=== PATIENT | female | born 1970 | race Caucasian/White ===

== ENCOUNTER 2020-04-13 13:57 | Emergency (ER) | payer MEDICAID, SELFPAY ==
[~2020-04-13] VITALS: Ht 162.6 cm; Wt 63.5 kg
[2020-04-13 13:59] VITALS: Ht 162.6 cm; Wt 63.5 kg
[2020-04-13 16:12] VITALS: BP 142/79
== END 2020-04-13 16:12 | disposition home or self-care (01) ==
LOC: ED 13:57
DX: R53.1 Weakness (principal); M79.10 Myalgia, unspecified site; Z20.828 Contact with and (suspected) exposure to other viral communicable diseases
CPT/HCPCS: U0003

== ENCOUNTER 2020-04-17 23:55 | Emergency (ER) | payer MEDICAID, SELFPAY ==
[~2020-04-17] VITALS: Ht 167.6 cm; Wt 86.2 kg
[2020-04-17 23:58] VITALS: Ht 167.6 cm; Wt 86.2 kg
[2020-04-18 01:05] LABS: BASOPHIL % 1.4 % (0.2-1.3); PLATELET COUNT 233 x10^3mcL (179-408); RED CELL DISTRIBUTION WIDTH 12.8 % (12.3-17.7)
[2020-04-18 01:17] LABS: CALCIUM 9.2 mg/dL (8.5-10.1); CARBON DIOXIDE 32.2 mmol/L (21-32); CHLORIDE SERUM 104 mmol/L (98-107); CREATININE SERUM 0.8 mg/dL (0.6-1.0); GFR1 > 60 mL/min; GLUCOSE SERUM 131 mg/dL (74-106); POTASSIUM SERUM 3.9 mmol/L (3.5-5.1); SODIUM SERUM 140 mmol/L (136-145)
[2020-04-18 01:22] LABS: ALBUMIN 3.5 g/dL (3.4-5.0); ALKALINE PHOSPHATASE 115 U/L (46-116); ALT/SGPT 55 U/L (14-59); AST/SGOT 25 U/L (15-37); BILIRUBIN TOTAL 0.3 mg/dL (0.20-1.00); TOTAL PROTEIN, SERUM 7.5 g/dL (6.4-8.2)
[2020-04-18 02:16] VITALS: BP 115/55
== END 2020-04-18 02:22 | disposition home or self-care (01) ==
LOC: ED 23:55
PROVIDERS: Emergency Medicine
DX: R42 Dizziness and giddiness (principal); R51.9 Headache, unspecified; R11.0 Nausea; Z20.828 Contact with and (suspected) exposure to other viral communicable diseases
CPT/HCPCS: J2405; U0003